=== PATIENT | male | born 1980 | race Caucasian/White ===

== ENCOUNTER 2017-07-17 16:22 | Emergency (ER) | payer OTHER ==
[2017-07-17 16:28] VITALS: BP 178/86; PULSE 82; RESP 18; TEMP 97
[2017-07-17] MEDS ORDERED: KETOROLAC 30 MG/ML 1 ML VIAL IVP STA (16:54)
--- NOTE | 2017-07-17 16:57 | ED ---
Abdominal Pain HPI - General Chief Complaint: Abdominal Pain Stated Complaint: abdominal pain Time Seen by Provider: 07/17/17 16:35 Source: patient, RN notes reviewed Mode of arrival: ambulatory Limitations: no limitations - History of Present Illness Initial Comments: This is a 36-year-old male with a benign past medical history who states he had the onset about one half weeks ago of intermittent left lower quadrant pain. He states this morning it started at 7 AM and this time did not go away. Minutes wax is awaiting between 7 and 06/24 to his current 4-5/10 in severity. No overt fevers hospice and sweats. No dysuria no hematuria no diarrhea no constipation. No trauma. No history of kidney stones. MD Complaint: abdominal pain - Related Data Home Medications Medication Instructions Recorded Confirmed Allopurinol [Zyloprim] 300 mg PO DAILY 07/17/17 07/17/17 Losartan/Hydrochlorothiazide 1 each PO DAILY 07/17/17 07/17/17 [Losartan-Hctz 100-12.5 mg Tab] Meloxicam [Mobic] 15 mg PO DAILY 07/17/17 07/17/17 Previous Rx's Medication Instructions Recorded Ibuprofen 800 mg PO Q6HR PRN #20 tablet 07/17/17 Tamsulosin [Flomax] 0.4 mg PO DAILY #7 cap 07/17/17 Allergies Allergy/AdvReac Type Severity Reaction Status Date / Time No Known Allergies Allergy Verified 07/17/17 16:28 Review of Systems ROS Statement: Those systems with pertinent positive or pertinent negative responses have been documented in the HPI. ROS Other: All systems not noted in ROS Statement are negative. Past Medical History Past Medical History: No Reported History History of Any Multi-Drug Resistant Organisms: None Reported Past Surgical History: Orthopedic Surgery Past Psychological History: No Psychological Hx Reported Smoking Status: Never smoker Past Alcohol Use History: Rare Past Drug Use History: None Reported General Exam - General Exam Comments Initial Comments: This is a well-developed well-nourished awake alert oriented 3 male Limitations: no limitations General appearance: alert, in no apparent distress Head exam: Present: atraumatic, normocephalic, normal inspection Eye exam: Present: normal appearance, PERRL, EOMI. Absent: scleral icterus, conjunctival injection, periorbital swelling ENT exam: Present: normal exam, mucous membranes moist Neck exam: Present: normal inspection. Absent: tenderness, meningismus, lymphadenopathy Respiratory exam: Present: normal lung sounds bilaterally. Absent: respiratory distress, wheezes, rales, rhonchi, stridor Cardiovascular Exam: Present: regular rate, normal rhythm, normal heart sounds. Absent: systolic murmur, diastolic murmur, rubs, gallop, clicks GI/Abdominal exam: Present: soft, tenderness (Obese abdomen with left lower quadrant tenderness palpation no guarding no rebound), normal bowel sounds. Absent: distended, guarding, rebound, rigid Rectal exam: Present: deferred exam: Present: normal inspection Extremities exam: Present: normal inspection, full ROM, normal capillary refill. Absent: tenderness, pedal edema, joint swelling, calf tenderness Back exam: Present: normal inspection. Absent: CVA tenderness (R), CVA tenderness (L) Neurological exam: Present: alert, oriented X3, CN II-XII intact Psychiatric exam: Present: normal affect, normal mood Skin exam: Present: warm, dry, intact, normal color. Absent: rash Course Vital Signs 07/17/17 16:26 Temperature 97.0 F L Pulse Rate 82 Respiratory 18 Rate Blood Pressure 178/86 O2 Sat by Pulse 97 Oximetry Medical Decision Making - Medical Decision Making Patient is feeling much improved at this time I did discuss the findings with him the presentation is consistent with a left ureterolithiasis. Patient will be discharged on appropriate medication is a follow-up with his doctor and return when necessary - Lab Data Result diagrams: 07/17/17 17:07 07/17/17 17:07 Lab Results 07/17/17 07/17/17 07/17/17 Range/Units 17:07 17:07 17:07 WBC 19.8 H (3.8-10.6) k/uL RBC 5.51 (4.30-5.90) m/uL Hgb 17.0 (13.0-17.5) gm/dL Hct 47.1 (39.0-53.0) % MCV 85.3 (80.0-100.0) fL MCH 30.9 (25.0-35.0) pg MCHC 36.2 (31.0-37.0) g/dL RDW 12.8 (11.5-15.5) % Plt Count 274 (150-450) k/uL Neutrophils % 86 % Lymphocytes % 8 % Monocytes % 4 % Eosinophils % 1 % Basophils % 0 % Neutrophils # 17.1 H (1.3-7.7) k/uL Lymphocytes # 1.6 (1.0-4.8) k/uL Monocytes # 0.8 (0-1.0) k/uL Eosinophils # 0.1 (0-0.7) k/uL Basophils # 0.1 (0-0.2) k/uL Sodium 137 (137-145) mmol/L Potassium 4.0 (3.5-5.1) mmol/L Chloride 100 (98-107) mmol/L Carbon Dioxide 21 L (22-30) mmol/L Anion Gap 16 mmol/L BUN 14 (9-20) mg/dL Creatinine 1.00 (0.66-1.25) mg/dL Est GFR (MDRD) Af Amer >60 (>60 ml/min/1.73 sqM) Est GFR (MDRD) Non-Af >60 (>60 ml/min/1.73 sqM) Glucose 147 H (74-99) mg/dL Calcium 10.1 (8.4-10.2) mg/dL Total Bilirubin 0.8 (0.2-1.3) mg/dL AST 50 (17-59) U/L ALT 96 H (21-72) U/L Alkaline Phosphatase 90 (38-126) U/L Total Protein 7.9 (6.3-8.2) g/dL Albumin 4.7 (3.5-5.0) g/dL Amylase 47 (30-110) U/L Lipase 127 (23-300) U/L Urine Color Yellow Urine Appearance Clear (Clear) Urine pH 5.5 (5.0-8.0) Ur Specific [place] 1.016 (1.001-1.035) Urine Protein Negative (Negative) Urine Glucose (UA) Negative (Negative) Urine Ketones Negative (Negative) Urine Blood Negative (Negative) Urine Nitrite Negative (Negative) Urine Bilirubin Negative (Negative) Urine Urobilinogen <2.0 (<2.0) mg/dL Ur Leukocyte Esterase Negative (Negative) - Radiology Data Radiology results: report reviewed (Did review the imaging and reports are is evidence of a 3 mm calcification at the left UVJ. No other significant findings at this time.), image reviewed Disposition Clinical Impression: Kidney stone on left side, Renal colic on left side Disposition: HOME SELF-CARE Condition: Good Instructions: Kidney Stones (ED), Renal Colic (ED), Flank Pain (ED), How to Strain Your Urine (ED) Prescriptions: Ibuprofen 800 mg PO Q6HR PRN #20 tablet PRN Reason: Pain Tamsulosin [Flomax] 0.4 mg PO DAILY #7 cap Referrals: Mary Kate Dia MD [Primary Care Provider] - 1-2 days
[2017-07-17 17:29] LABS: Basophils # (A) 0.1 k/uL (0-0.2); Basophils % (A) 0 %; CH 30.2; CHCM 35.5; Eosinophils # (A) 0.1 k/uL (0-0.7); Eosinophils % (A) 1 %; HCT 47.1 % (39.0-53.0); HDW 2.69; Luc # (Auto) 0.18; Luc % (Auto) 1; Lymphocytes # (A) 1.6 k/uL (1.0-4.8); Lymphocytes % (A) 8 %; MCH 30.9 pg (25.0-35.0); MCHC 36.2 g/dL (31.0-37.0); MCV 85.3 fL (80.0-100.0); Mean Platelet Volume 7.1; Monocytes # (A) 0.8 k/uL (0-1.0); Monocytes % (A) 4 %; Neutrophils # (A) 17.1 k/uL (1.3-7.7); Neutrophils % (A) 86 %; RBC 5.51 m/uL (4.30-5.90); RDW 12.8 % (11.5-15.5); WBC 19.8 k/uL (3.8-10.6); WBC (Perox) 19.28
[2017-07-17 17:32] LABS: Appearance,Urine Clear (Clear); Bilirubin,Urine Negative (Negative); Glucose,Urine (UA) Negative (Negative); Ketones,Urine Negative (Negative); Leukocyte Esterase,Urine Negative (Negative); Nitrite,Urine Negative (Negative); PH, Urine 5.5 (5.0-8.0); Protein,Urine Negative (Negative); Specific Gravity,Urine 1.016 (1.001-1.035); UA Billing (MACRO vs. MICRO) CHEM; Urobilinogen,Urine <2.0 mg/dL (<2.0)
[2017-07-17 17:44] LABS: ALT 96 U/L (21-72); AST 50 U/L (17-59); Alkaline Phosphatase 90 U/L (38-126); Amylase 47 U/L (30-110); Anion Gap 16 mmol/L; Blood Urea Nitrogen 14 mg/dL (9-20); Calcium 10.1 mg/dL (8.4-10.2); Carbon Dioxide 21 mmol/L (22-30); Chloride 100 mmol/L (98-107); Glucose 147 mg/dL (74-99); Non-African American GFR(MDRD) >60 (>60 ml/min/1.73 sqM); Sodium 137 mmol/L (137-145); Total Bilirubin 0.8 mg/dL (0.2-1.3); Total Protein 7.9 g/dL (6.3-8.2)
--- NOTE | 2017-07-17 18:07 | CT ---
EXAMINATION TYPE: CT abdomen pelvis wo con DATE OF EXAM: 07/17/2017 HISTORY: Patient complains of epigastric pain. CT DLP: 1811.3 mGycm. Automated Exposure Control for Dose Reduction was Utilized. TECHNIQUE: CT scan of the abdomen and pelvis is performed without oral or IV contrast. COMPARISON: NONE FINDINGS: Within the limitations of a non-contrast study, the following observations are made. LUNG BASES: No significant abnormality is appreciated. LIVER/GB: Liver is diffusely low dense consistent with marked fatty infiltration. Gallbladder is cont racted. PANCREAS: No significant abnormality is seen. SPLEEN: No significant abnormality is seen. ADRENALS: No significant abnormality is seen. KIDNEYS: There are 3-4 calculi scattered throughout the left kidney measuring 4 mm or smaller in size . There is additional obstructing 3 mm calculus at left UVJ on axial image 156. There is no significa nt left-sided pyelocaliectasis or proximal hydroureter. There is however mild left-sided perinephric fat stranding and left-sided renal enlargement. There are 3-4 small calculi measuring 3 mm or smaller in size scattered throughout the right kidney. No right-sided hydronephrosis is seen. BOWEL: Normal-appearing appendix from cecum is incidentally seen. GENITAL ORGANS: No gross abnormality seen. LYMPH NODES: No greater than 1cm abdominal or pelvic lymph nodes are appreciated. OSSEOUS STRUCTURES: No significant abnormality is seen. OTHER: No significant additional abnormality is seen. IMPRESSION: There is 3 mm calculus at left UVJ causing minimal left-sided hydronephrosis. There are s everal additional small nonobstructing renal calculi identified bilaterally.
[2017-07-17] MEDS ORDERED: TAMSULOSIN 0.4 MG CAP.ER.24H PO STA (18:30)
== END 2017-07-17 18:39 | disposition home or self-care (01) ==
LOC: EC 16:22
DX: N13.2 Hydronephrosis with renal and ureteral calculous obstruction (principal); N23 Unspecified renal colic; Z79.899 Other long term (current) drug therapy
CPT/HCPCS: 99284; 96374; 36415; 80053; 82150; 83690; 85025; 81003; 87040; 74176; J1885

== ENCOUNTER 2018-08-31 02:05 | Emergency (ER) | payer OTHER ==
[2018-08-31 02:11] VITALS: TEMP 97.7
--- NOTE | 2018-08-31 02:51 | ED ---
Back Pain HPI - General Chief Complaint: Back Pain/Injury Stated Complaint: Back Pain Time Seen by Provider: 08/31/18 02:14 Source: patient, RN notes reviewed Mode of arrival: ambulatory Limitations: no limitations - History of Present Illness Initial Comments: This is a 38-year-old male who presents to the emergency department with chief complaint of left-sided back pain. Patient states he has had back pain for the past 2 days. Patient describes the pain as a constant dull ache with intermittent increase in intensity. Patient states pain is made worse when lying on his back. He denies any falls, injuries or trauma. He denies any radiation of pain. States nothing alleviates the pain. Denies any fevers or chills, chest pain or shortness of breath, abdominal pain, nausea or vomiting, dysuria or hematuria. Patient reports history of kidney stones but states that this does not feel like previous episode as he had abdominal pain last time. - Related Data Home Medications Medication Instructions Recorded Confirmed Allopurinol [Zyloprim] 300 mg PO DAILY 07/17/17 08/31/18 Losartan/Hydrochlorothiazide 1 each PO DAILY 07/17/17 08/31/18 [Losartan-Hctz 100-12.5 mg Tab] Meloxicam [Mobic] 15 mg PO DAILY 07/17/17 08/31/18 Hydroxychloroquine Sulfate 400 mg PO ONCE 08/31/18 08/31/18 [Plaquenil] Leflunomide [Arava] 20 mg PO DAILY 08/31/18 08/31/18 predniSONE 10 mg PO BID 08/31/18 08/31/18 Previous Rx's Medication Instructions Recorded Ibuprofen 600 mg PO Q6HR #20 tablet 08/31/18 Allergies Allergy/AdvReac Type Severity Reaction Status Date / Time shellfish derived [Shellfish] Allergy Anaphylaxis Verified 09/21/17 03:08 Review of Systems ROS Statement: Those systems with pertinent positive or pertinent negative responses have been documented in the HPI. ROS Other: All systems not noted in ROS Statement are negative. Past Medical History Past Medical History: Hypertension History of Any Multi-Drug Resistant Organisms: None Reported Past Surgical History: Orthopedic Surgery Additional Past Surgical History / Comment(s): left knee (2006) & ankle (2016) surgery , hand sx 2017 Past Psychological History: No Psychological Hx Reported Smoking Status: Never smoker Past Alcohol Use History: Rare Past Drug Use History: None Reported General Exam - General Exam Comments Initial Comments: General: Awake and alert, well-developed; in no apparent distress. HEENT: Head atraumatic, normocephalic. Pupils are equal, round and reactive to light. Extraocular movements intact. Oropharynx moist without erythema or exudate. Neck: Supple. Normal ROM. Cardiovascular: Regular rate and rhythm. No murmurs, rubs or gallops. Chest symmetrical. Respiratory: Lungs clear to auscultation bilaterally. No wheezes, rales or rhonchi. Normal respiratory effort with no use of accessory muscles. Abdomen: Soft, non-tender, non-distended. No rigidity, rebound or guarding. Normal bowel sounds in all 4 quadrants. Musculoskeletal: Normal ROM, no tenderness bilateral upper and lower extremities. Ambulating normally. Skin: [place], warm and dry without rashes or lesions. Neurological: Alert and oriented x3. CN II-XII grossly intact. Speech is fluent and answers are appropriate. No focal neuro deficits. Psychiatric: Normal mood and affect. No overt signs of depression or anxiety noted. Limitations: no limitations Back exam: Present: normal inspection, full ROM, tenderness (tenderness on palpation of left posterolateral ribs at approximately level of T5-T7). Absent : paraspinal tenderness, vertebral tenderness Course Vital Signs 08/31/18 02:07 Temperature 97.7 F Pulse Rate 95 Respiratory 20 Rate Blood Pressure 126/85 O2 Sat by Pulse 97 Oximetry Medical Decision Making - Medical Decision Making This is a 38-year-old male who presents to the emergency department with chief complaint of back pain 2 days. Patient reports localized pain to the left side of his back. He has no other complaints and denies any other symptoms other than pain. States pain has been constant; it is not pleuritic in nature and nothing relieves the pain. It is made worse with lying down. Denies any falls, injuries or trauma. There is localized tenderness on palpation of the left posterolateral ribs at level of approximately T5 to T7. Patient does report a history of kidney stones but states that this feels different and the area of tenderness is higher than level of the kidneys. However, a UA was obtained. This revealed no acute abnormalities. No blood or signs of infection. An x-ray of the chest and left ribs was obtained. This revealed no acute abnormalities. Based on history and physical examination findings, I have high suspicion for musculoskeletal pain. Recommended rest, ice, Tylenol or Motrin as needed. Patient's vital signs are stable and he is in no acute distress. He will be discharged home at this time. He is in agreement and voices understanding. All questions answered. - Lab Data Lab Results 08/31/18 Range/Units 02:39 Urine Color Yellow Urine Appearance Clear (Clear) Urine pH 5.5 (5.0-8.0) Ur Specific [place] 1.015 (1.001-1.035) Urine Protein Negative (Negative) Urine Glucose (UA) Negative (Negative) Urine Ketones Negative (Negative) Urine Blood Negative (Negative) Urine Nitrite Negative (Negative) Urine Bilirubin Negative (Negative) Urine Urobilinogen <2.0 (<2.0) mg/dL Ur Leukocyte Esterase Negative (Negative) - Radiology Data Radiology results: report reviewed, image reviewed Chest x-ray impression: Normal chest. Normal left ribs. Disposition Clinical Impression: Rib pain Disposition: HOME SELF-CARE Condition: Good Instructions: Chest Wall Pain (ED) Additional Instructions: Please take medications as prescribed. Please follow up with primary care provider within 1-2 days. Return to emergency department if symptoms should worsen or any concerns arise. Prescriptions: Ibuprofen 600 mg PO Q6HR #20 tablet Is patient prescribed a controlled substance at d/c from ED?: No Referrals: Mary Kate Dia MD [Primary Care Provider] - 1-2 days Time of Disposition: 03:26
[2018-08-31 03:05] LABS: Appearance,Urine Clear (Clear); Bilirubin,Urine Negative (Negative); Blood,Urine Negative (Negative); Color,Urine Yellow; Glucose,Urine (UA) Negative (Negative); Ketones,Urine Negative (Negative); Leukocyte Esterase,Urine Negative (Negative); Nitrite,Urine Negative (Negative); PH, Urine 5.5 (5.0-8.0); Protein,Urine Negative (Negative); Specific Gravity,Urine 1.015 (1.001-1.035); Urobilinogen,Urine <2.0 mg/dL (<2.0)
--- NOTE | 2018-08-31 03:17 | XR ---
EXAMINATION TYPE: XR ribs LT w pa chest xray DATE OF EXAM: 08/31/2018 COMPARISON: NONE HISTORY: Left side pain for 3 days TECHNIQUE: 5 views FINDINGS: Heart and mediastinum are normal. Lungs are clear. There is no sign of pleural effusion or pneumothorax. Left ribs appear intact. IMPRESSION: Normal chest. Normal left ribs.
[2018-08-31 03:31] VITALS: BP 120/69; PULSE 70; RESP 18
== END 2018-08-31 03:31 | disposition home or self-care (01) ==
LOC: EC 02:05
DX: R07.81 Pleurodynia (principal); I10 Essential (primary) hypertension; Z79.899 Other long term (current) drug therapy; Z79.1 Long term (current) use of non-steroidal anti-inflammatories (NSAID); Z79.52 Long term (current) use of systemic steroids; Z91.013 Allergy to seafood; Z87.442 Personal history of urinary calculi
CPT/HCPCS: 81003; 99283

== ENCOUNTER 2019-01-26 10:53 | Emergency (ER) | payer OTHER ==
[2019-01-26 11:11] VITALS: RESP 16
[2019-01-26] MEDS ORDERED: SODIUM CHLORIDE 0.9% 1,000 ML IV STA (11:45)
[2019-01-26 11:59] LABS: Basophils # (A) 0.1 k/uL (0-0.2); Basophils % (A) 1 %; Eosinophils # (A) 0.7 k/uL (0-0.7); Eosinophils % (A) 6 %; HCT 50.6 % (39.0-53.0); HGB 16.4 gm/dL (13.0-17.5); Lymphocytes # (A) 2.7 k/uL (1.0-4.8); Lymphocytes % (A) 24 %; MCH 28.5 pg (25.0-35.0); MCHC 32.4 g/dL (31.0-37.0); MCV 88.1 fL (80.0-100.0); Mean Platelet Volume 7.3; Monocytes # (A) 0.8 k/uL (0-1.0); Monocytes % (A) 7 %; Neutrophils % (A) 61 %; Platelet Count 268 k/uL (150-450); RBC 5.74 m/uL (4.30-5.90); RDW 13.2 % (11.5-15.5); WBC 11.4 k/uL (3.8-10.6)
[2019-01-26] MEDS ORDERED: ONDANSETRON 4 MG/2 ML VIAL IVP STA (12:03)
[2019-01-26] MEDS ORDERED: MORPHINE SULFATE 4 MG/ML SYRINGE IVP STA (12:03)
[2019-01-26] MEDS ORDERED: KETOROLAC 30 MG/ML 1 ML VIAL IVP STA (12:03)
[2019-01-26 12:07] LABS: Appearance,Urine Cloudy (Clear); Bacteria,Urine Occasional /hpf; Bilirubin,Urine Negative (Negative); Blood,Urine Large (Negative); Calcium Oxalate Crystals,Urine Few /hpf; Color,Urine Red; Glucose,Urine (UA) Trace (Negative); Ketones,Urine Trace (Negative); Leukocyte Esterase,Urine Negative (Negative); Mucus,Urine Many /hpf; Nitrite,Urine Negative (Negative); Protein,Urine 3+ (Negative); RBC,Urine 92 /hpf (0-5); Specific Gravity,Urine 1.038 (1.001-1.035); Squamous Epithelial Cell,Urine 3 /hpf (0-4); WBC,Urine 2 /hpf (0-5)
--- NOTE | 2019-01-26 12:28 | ED ---
General Adult HPI - General Chief complaint: Abdominal Pain Stated complaint: back pain Time Seen by Provider: 01/26/19 11:15 Source: patient, RN notes reviewed Mode of arrival: ambulatory Limitations: no limitations - History of Present Illness Initial comments: 38-year-old male presents to the emergency department for a chief complaint of left flank pain. Patient states he woke up this morning with this pain. Patient states it feels like a kidney stone which he has had 2 years ago. Patient states he is having urinary frequency. He states the pain is also radiating into his left side abdomen. Patient denies any other abdominal pain. Patient denies any testicular pain. Patient denies nausea or vomiting. Patient has no other complaints at this time including shortness of breath, chest pain, nausea or vomiting, headache, or visual changes. - Related Data Home Medications Medication Instructions Recorded Confirmed Allopurinol [Zyloprim] 600 mg PO DAILY 07/17/17 01/26/19 Losartan/Hydrochlorothiazide 1 tab PO DAILY 07/17/17 01/26/19 [Losartan-Hctz 100-12.5 mg Tab] Meloxicam [Mobic] 15 mg PO DAILY 07/17/17 01/26/19 Leflunomide [Arava] 20 mg PO DAILY 08/31/18 01/26/19 Adalimumab [Humira Pen] 40 mg SQ [id number] 01/26/19 01/26/19 Previous Rx's Medication Instructions Recorded HYDROcodone/APAP 5-325MG [[place] 1 tab PO Q6HR PRN #12 tab 01/26/19 5-325] Ibuprofen [Motrin] 600 mg PO Q8HR PRN #20 tab 01/26/19 Ondansetron [Zofran ODT] 4 mg PO Q8HR PRN #15 tab 01/26/19 Tamsulosin [Flomax] 0.4 mg PO DAILY #10 cap 01/26/19 Allergies Allergy/AdvReac Type Severity Reaction Status Date / Time shellfish derived [Shellfish] Allergy Anaphylaxis Verified 01/26/19 11:46 Review of Systems ROS Statement: Those systems with pertinent positive or pertinent negative responses have been documented in the HPI. ROS Other: All systems not noted in ROS Statement are negative. Past Medical History Past Medical History: Hypertension Additional Past Medical History / Comment(s): Kidney stones History of Any Multi-Drug Resistant Organisms: None Reported Past Surgical History: Orthopedic Surgery Additional Past Surgical History / Comment(s): left knee (2006) & ankle (2016) surgery , hand sx 2017 Past Psychological History: No Psychological Hx Reported Smoking Status: Never smoker Past Alcohol Use History: Rare Past Drug Use History: None Reported General Exam Limitations: no limitations General appearance: alert, in no apparent distress Head exam: Present: atraumatic, normocephalic, normal inspection Eye exam: Present: normal appearance, PERRL, EOMI. Absent: scleral icterus, conjunctival injection, periorbital swelling ENT exam: Present: normal exam, mucous membranes moist Neck exam: Present: normal inspection, full ROM. Absent: tenderness, meningismus, lymphadenopathy Respiratory exam: Present: normal lung sounds bilaterally. Absent: respiratory distress, wheezes, rales, rhonchi, stridor Cardiovascular Exam: Present: regular rate, normal rhythm, normal heart sounds. Absent: systolic murmur, diastolic murmur, rubs, gallop, clicks GI/Abdominal exam: Present: soft, normal bowel sounds. Absent: distended, tenderness, guarding, rebound, rigid Back exam: Absent: CVA tenderness (R), CVA tenderness (L) Neurological exam: Present: alert, oriented X3, CN II-XII intact Psychiatric exam: Present: normal affect, normal mood Course Vital Signs 01/26/19 01/26/19 11:09 13:46 Temperature 98.6 F 98.0 F Pulse Rate 91 84 Respiratory 16 16 Rate Blood Pressure 209/124 134/87 O2 Sat by Pulse 98 98 Oximetry Medical Decision Making - Medical Decision Making 38-year-old male with a past medical history of kidney stones, hypertension presents to the emergency department for a chief complaint of left flank pain 4 hours. Patient states he woke up with this pain. He states it radiates into the left lower quadrant and feels similar to past kidney stones. CBC has a w jessie count of 11, likely reactive. CMP unremarkable patient does have a glucose of 197, will follow up for repeat glucose with primary care. Urine does not show evidence of infection. Calcium oxalate crystals are present. 92 red blood cells present. Patient does have a 4-5 mm left ureteral calculus distal aspect with perinephric stranding and left-sided hydronephrosis. Patient initially hypertensive, likely due to the pain as pain was treated and blood pressure normalized to 134/87. Patient feeling much better at this time, currently rating his pain at a 4, will be given additional dose of pain medication. Patient will be given [place], Zofran, Flomax, and Motrin at home. He will follow up with urologist, referral given. He will return here if he has any worsening symptoms. - Lab Data Result diagrams: 01/26/19 11:28 01/26/19 11:28 Lab Results 01/26/19 01/26/19 01/26/19 Range/Units 11:28 11:28 11:28 WBC 11.4 H (3.8-10.6) k/uL RBC 5.74 (4.30-5.90) m/uL Hgb 16.4 (13.0-17.5) gm/dL Hct 50.6 (39.0-53.0) % MCV 88.1 (80.0-100.0) fL MCH 28.5 (25.0-35.0) pg MCHC 32.4 (31.0-37.0) g/dL RDW 13.2 (11.5-15.5) % Plt Count 268 (150-450) k/uL Neutrophils % 61 % Lymphocytes % 24 % Monocytes % 7 % Eosinophils % 6 % Basophils % 1 % Neutrophils # 7.0 (1.3-7.7) k/uL Lymphocytes # 2.7 (1.0-4.8) k/uL Monocytes # 0.8 (0-1.0) k/uL Eosinophils # 0.7 (0-0.7) k/uL Basophils # 0.1 (0-0.2) k/uL Sodium 140 (137-145) mmol/L Potassium 4.1 (3.5-5.1) mmol/L Chloride 104 (98-107) mmol/L Carbon Dioxide 25 (22-30) mmol/L Anion Gap 11 mmol/L BUN 21 H (9-20) mg/dL Creatinine 0.68 (0.66-1.25) mg/dL Est GFR (CKD-EPI)AfAm >90 (>60 ml/min/1.73 sqM) Est GFR (CKD-EPI)NonAf >90 (>60 ml/min/1.73 sqM) Glucose 197 H (74-99) mg/dL Calcium 9.5 (8.4-10.2) mg/dL Total Bilirubin 0.9 (0.2-1.3) mg/dL AST 35 (17-59) U/L ALT 61 (21-72) U/L Alkaline Phosphatase 75 (38-126) U/L Total Protein 7.3 (6.3-8.2) g/dL Albumin 4.1 (3.5-5.0) g/dL Amylase 71 (30-110) U/L Lipase 100 (23-300) U/L Urine Color Red Urine Appearance Cloudy (Clear) Urine pH 6.0 (5.0-8.0) Ur Specific [place] 1.038 H (1.001-1.035) Urine Protein 3+ H (Negative) Urine Glucose (UA) Trace H (Negative) Urine Ketones Trace H (Negative) Urine Blood Large H (Negative) Urine Nitrite Negative (Negative) Urine Bilirubin Negative (Negative) Urine Urobilinogen 2.0 (<2.0) mg/dL Ur Leukocyte Esterase Negative (Negative) Urine RBC 92 H (0-5) /hpf Urine WBC 2 (0-5) /hpf Ur Squamous Epith Cells 3 (0-4) /hpf Calcium Oxalate Crystal Few H (None) /hpf Urine Bacteria Occasional H (None) /hpf Urine Mucus Many H (None) /hpf Disposition Clinical Impression: Renal stone, Hyperglycemia Disposition: HOME SELF-CARE Condition: Good Instructions (If sedation given, give patient instructions): Flank Pain (ED), Kidney Stones (ED) Additional Instructions: Please take prescriptions as directed. Please follow-up with primary care in 1- 2 days as well as urology. Return here to the emergency department if you have any worsening symptoms. Prescriptions: Tamsulosin [Flomax] 0.4 mg PO DAILY #10 cap Ibuprofen [Motrin] 600 mg PO Q8HR PRN #20 tab PRN Reason: Pain HYDROcodone/APAP 5-325MG [[place] 5-325] 1 tab PO Q6HR PRN #12 tab PRN Reason: Pain Ondansetron [Zofran ODT] 4 mg PO Q8HR PRN #15 tab PRN Reason: Nausea Is patient prescribed a controlled substance at d/c from ED?: Yes When asked, does pt state using other controlled substances?: No If prescribed controlled substance>3 days was MAPS reviewed?: Prescribed <3 Days If opioid is for acute pain is fill amount 7 days or less?: Yes If Rx opioid, was Start Talking consent form obtained?: Yes Referrals: Mary Kate Dia MD [Primary Care Provider] - 1-2 days Time of Disposition: 14:08
[2019-01-26 12:30] LABS: Albumin 4.1 g/dL (3.5-5.0); Amylase 71 U/L (30-110); Anion Gap 11 mmol/L; Blood Urea Nitrogen 21 mg/dL (9-20); Calcium 9.5 mg/dL (8.4-10.2); Carbon Dioxide 25 mmol/L (22-30); Chloride 104 mmol/L (98-107); Glucose 197 mg/dL (74-99); Lipase 100 U/L (23-300); Sodium 140 mmol/L (137-145); Total Bilirubin 0.9 mg/dL (0.2-1.3); Total Protein 7.3 g/dL (6.3-8.2)
[2019-01-26 12:31] LABS: AST 35 U/L (17-59)
[2019-01-26 12:32] LABS: ALT 61 U/L (21-72); Alkaline Phosphatase 75 U/L (38-126)
[2019-01-26 12:35] LABS: Potassium 4.1 mmol/L (3.5-5.1)
--- NOTE | 2019-01-26 13:14 | CT ---
EXAMINATION TYPE: CT abdomen pelvis wo con DATE OF EXAM: 01/26/2019 COMPARISON: Prior CT 07/17/2017 HISTORY: Back pain CT DLP: 2454 mGycm Automated exposure control for dose reduction was used. TECHNIQUE: Helical acquisition of images from the lung bases through the pelvis. FINDINGS: Lack of contrast could compromise sensitivity. LUNG BASES: No significant abnormality is appreciated. AORTA: No significant abnormality is appreciataed. LIVER/GB: The liver shows low attenuation likely due to hepatic steatosis. The liver is enlarged. Gal lbladder is unremarkable. PANCREAS: No significant abnormality is seen. SPLEEN: No significant abnormality is seen. ADRENALS: No significant abnormality is seen. KIDNEYS: There is perinephric stranding on the left. Mild left-sided hydronephrosis. There multiple c alcifications present within the left kidney, approximately 4.5 punctate calcifications, the largest measures only approximately 5 to 6 mm. The left ureter is mildly dilated. There is a distal left uret eral calculus present measuring approximately 4 to 5 mm in size. REPRODUCTIVE ORGANS: No significant abnormality is seen. URINARY BLADDER: No significant abnormality is seen. BOWEL: No significant abnormality is seen. The appendix is normal. No bowel obstruction. FREE AIR: No Free Air is visible. ASCITES: None visible. PELVIC ADENOPATHY: None visualized. RETROPERITONEAL ADENOPATHY: No Retroperitoneal Adenopathy visible. OSSEOUS STRUCTURES: No significant abnormality is seen. IMPRESSION: DISTAL LEFT URETERAL CALCULUS, LEFT-SIDED HYDRONEPHROSIS AND NEPHROLITHIASIS. HEPATOMEGALY, CORRELATE FOR HEPATIC STEATOSIS.
[2019-01-26] MEDS ORDERED: HYDROmorphone 0.5 MG/0.5 ML SYRINGE IVP STA (13:46)
[2019-01-26 13:47] VITALS: PULSE 84
[2019-01-26 14:29] VITALS: BP 148/74; TEMP 97.8
--- NOTE | 2019-01-26 14:31 | XR ---
Abdomen HISTORY: Abdomen pain Frontal view of the abdomen on 3 images, correlation to CT abdomen pelvis same date Lung bases are clear. There is no evident bowel obstruction or pneumoperitoneum. No pathologic calcif ication is evident likely due to patient body habitus, technique of the exam. IMPRESSION: No acute abnormality. Patient's kidney and ureteral calculi are not seen with certainty.
== END 2019-01-26 14:27 | disposition home or self-care (01) ==
LOC: EC 10:53
DX: N13.2 Hydronephrosis with renal and ureteral calculous obstruction (principal); R73.9 Hyperglycemia, unspecified; I10 Essential (primary) hypertension; Z91.013 Allergy to seafood; Z79.1 Long term (current) use of non-steroidal anti-inflammatories (NSAID); Z79.899 Other long term (current) drug therapy
CPT/HCPCS: 36415; 80053; 82150; 83690; 85025; 81001; 74018; 74176; 99284; 96374; 96375 ×3; 96361 ×2; J2270; J2405; J1885; J1170

== ENCOUNTER → 2019-10-31 | Outpatient (CLI) | payer OTHER ==
--- NOTE | 2019-10-31 12:30 | US ---
EXAMINATION TYPE: US liver DATE OF EXAM: 10/31/2019 COMPARISON: NONE CLINICAL HISTORY: R94.5 ABNORMAL LIVER FUNCTIONS. EXAM MEASUREMENTS: Liver Length: 20.4 cm Gallbladder Wall: 0.2 cm CBD: 0.6 cm Right Kidney: 14.5 x 5.5 x 6.2 cm Morbid obesity, technically difficult and limited. Pancreas: wnl Liver: Severe attenuation, decreased visualization of vessels suggestive of fatty infiltrate, enlarg ed, limited views. Findings overall limit evaluation for hepatic mass. Gallbladder: limited visualization, appears wnl Evidence for sonographic Bales's sign: No CBD: wnl Right Kidney: measures large IMPRESSION: 1. Sonographic findings most commonly related to hepatic steatosis. This appears severe. Correlate wi th liver function test results. 2. Hepatomegaly. The right kidney also appears enlarged in size.
== END | disposition home or self-care (01) ==
LOC: RADUSWWP 08:56
PROVIDERS: ATTEND Internal Medicine
DX: R16.0 Hepatomegaly, not elsewhere classified (principal)
CPT/HCPCS: 76705

== ENCOUNTER → 2020-06-05 | Outpatient (CLI) | payer OTHER ==
[2020-06-05 21:30] LABS: Hemoglobin A1C 11.7 % (4.0-6.0)
== END | disposition home or self-care (01) ==
LOC: LABWHC1 10:31
PROVIDERS: ATTEND Internal Medicine
DX: R73.9 Hyperglycemia, unspecified (principal)
CPT/HCPCS: 36415; 83036

== ENCOUNTER → 2022-03-30 | Outpatient (CLI) | payer OTHER ==
[2022-03-30 14:31] LABS: Basophils # (A) 0.08 X 10*3/uL (0.00-0.10); Basophils % (A) 0.6 %; Eosinophils # (A) 0.19 X 10*3/uL (0.04-0.35); Eosinophils % (A) 1.4 %; HCT 51.4 % (39.6-50.0); HGB 16.8 g/dL (13.0-17.0); Immature Grans, Automated 0.7 %; Lymphocytes # (A) 3.43 X 10*3/uL (0.90-5.00); Lymphocytes % (A) 25.3 %; MCH 29.4 pg (27.0-32.0); MCHC 32.7 g/dL (32.0-37.0); Mean Platelet Volume 10.7 fL (9.5-12.2); Monocytes # (A) 0.87 X 10*3/uL (0.20-1.00); Monocytes % (A) 6.4 %; NRBC Per 100 WBC 0 /100 WBCS (0.0-0.0); Neutrophils # (A) 8.88 X 10*3/uL (1.80-7.70); Neutrophils % (A) 65.6 %; Platelet Count 292 X 10*3/uL (140-440); RBC 5.71 X 10*6/uL (4.40-5.60); RDW 12.8 % (11.5-14.5); WBC 13.55 X 10*3/uL (4.50-10.00)
[2022-03-30 14:51] LABS: ALT 54 U/L (10-49); AST 24 U/L (14-35); Albumin 4.5 g/dL (3.8-4.9); Albumin/Globulin Ratio 1.67 (1.60-3.17); Alkaline Phosphatase 79 U/L (41-126); Bilirubin, Conjugated <0.20 mg/dL (0.20-0.40); Globulin 2.7 g/dL (1.6-3.3); Total Protein 7.2 g/dL (6.2-8.2)
== END | disposition home or self-care (01) ==
LOC: LABWHC1 10:31
PROVIDERS: ATTEND Internal Medicine Rheumatology
DX: Z51.81 Encounter for therapeutic drug level monitoring (principal); M06.09 Rheumatoid arthritis without rheumatoid factor, multiple sites
CPT/HCPCS: 36415; 80076; 85025

== ENCOUNTER → 2022-07-21 | Outpatient (CLI) | payer OTHER ==
[2022-07-21 14:39] LABS: Basophils # (A) 0.06 X 10*3/uL (0.00-0.10); Basophils % (A) 0.5 %; Eosinophils # (A) 0.19 X 10*3/uL (0.04-0.35); Eosinophils % (A) 1.7 %; HGB 15.9 g/dL (13.0-17.0); Immature Grans, Automated 0.4 %; Lymphocytes # (A) 3.84 X 10*3/uL (0.90-5.00); Lymphocytes % (A) 33.7 %; MCH 30.5 pg (27.0-32.0); MCHC 33.8 g/dL (32.0-37.0); Mean Platelet Volume 10.6 fL (9.5-12.2); Monocytes # (A) 0.57 X 10*3/uL (0.20-1.00); NRBC Per 100 WBC 0 /100 WBCS (0.0-0.0); Neutrophils % (A) 58.7 %; Platelet Count 264 X 10*3/uL (140-440); RBC 5.22 X 10*6/uL (4.40-5.60); RDW 12.3 % (11.5-14.5); WBC 11.41 X 10*3/uL (4.50-10.00)
[2022-07-21 15:30] LABS: Bilirubin,Unconjugated 0.43 mg/dL (0.20-1.00); Chol/HDL Ratio 3.22 Ratio; Globulin 2.6 g/dL (1.6-3.3); LDL Cholesterol,Calculated 95.8 mg/dL (0.0-131.0)
[2022-07-21 15:31] LABS: ALT 95 U/L (10-49); AST 46 U/L (14-35); Albumin 4.6 g/dL (3.8-4.9); Albumin/Globulin Ratio 1.73 (1.60-3.17); Alkaline Phosphatase 80 U/L (41-126); Bilirubin, Conjugated 0.21 mg/dL (0.20-0.40); Total Protein 7.2 g/dL (6.2-8.2)
== END | disposition home or self-care (01) ==
LOC: LABWHC1 09:53
PROVIDERS: ATTEND Internal Medicine Rheumatology
DX: Z51.81 Encounter for therapeutic drug level monitoring (principal); M06.09 Rheumatoid arthritis without rheumatoid factor, multiple sites
CPT/HCPCS: 36415; 80061; 80076; 85025

== ENCOUNTER → 2022-10-22 | Outpatient (CLI) | payer OTHER ==
[2022-10-22 17:59] LABS: Basophils # (A) 0.08 X 10*3/uL (0.00-0.10); Basophils % (A) 0.6 %; Eosinophils # (A) 0.14 X 10*3/uL (0.04-0.35); HCT 53.1 % (39.6-50.0); HGB 17.6 g/dL (13.0-17.0); Immature Grans, Automated 0.4 %; Lymphocytes # (A) 2.64 X 10*3/uL (0.90-5.00); Lymphocytes % (A) 19.5 %; MCH 29.7 pg (27.0-32.0); MCHC 33.1 g/dL (32.0-37.0); MCV 89.5 fL (80.0-97.0); Mean Platelet Volume 10.5 fL (9.5-12.2); Monocytes # (A) 0.79 X 10*3/uL (0.20-1.00); Monocytes % (A) 5.8 %; NRBC Per 100 WBC 0 /100 WBCS (0.0-0.0); Neutrophils # (A) 9.85 X 10*3/uL (1.80-7.70); Neutrophils % (A) 72.7 %; Platelet Count 287 X 10*3/uL (140-440); RBC 5.93 X 10*6/uL (4.40-5.60); RDW 12.2 % (11.5-14.5); WBC 13.55 X 10*3/uL (4.50-10.00)
[2022-10-22 18:12] LABS: ALT 61 U/L (10-49); AST 34 U/L (14-35); Albumin 4.6 g/dL (3.8-4.9); Albumin/Globulin Ratio 1.46 (1.60-3.17); Alkaline Phosphatase 81 U/L (41-126); Bilirubin, Conjugated <0.20 mg/dL (0.20-0.40); Globulin 3.2 g/dL (1.6-3.3); LDL Cholesterol,Calculated 92.5 mg/dL (0.0-131.0); Total Protein 7.8 g/dL (6.2-8.2)
== END | disposition home or self-care (01) ==
LOC: LABWHC1 12:23
PROVIDERS: ATTEND Internal Medicine Rheumatology
DX: Z51.81 Encounter for therapeutic drug level monitoring (principal); M06.09 Rheumatoid arthritis without rheumatoid factor, multiple sites
CPT/HCPCS: 36415; 80061; 80076; 85025

== ENCOUNTER → 2023-06-25 | Outpatient (CLI) | payer OTHER | END | disposition home or self-care (01) | LOC: LABWHC1 08:48 | PROVIDERS: ATTEND Internal Medicine Rheumatology | DX: Z53.9 Procedure and treatment not carried out, unspecified reason (principal) ==

== ENCOUNTER → 2024-03-14 | Outpatient (CLI) | payer OTHER ==
[2024-03-14 21:46] LABS: Basophils # (A) 0.08 X 10*3/uL (0.00-0.10); Basophils % (A) 0.7 %; Eosinophils # (A) 0.16 X 10*3/uL (0.04-0.35); Eosinophils % (A) 1.3 %; HCT 51.2 % (39.6-50.0); HGB 17.3 g/dL (13.0-17.0); Lymphocytes # (A) 3.15 X 10*3/uL (0.90-5.00); MCH 30.3 pg (27.0-32.0); MCHC 33.8 g/dL (32.0-37.0); MCV 89.7 FL (80.0-97.0); Mean Platelet Volume 10.9 FL (9.5-12.2); Monocytes % (A) 7.4 %; NRBC Per 100 WBC 0 X 10*3/uL (0.00-0.01); Neutrophils # (A) 7.78 X 10*3/uL (1.80-7.70); Neutrophils % (A) 64.2 %; Platelet Count 271 X 10*3/uL (140-440); RBC 5.71 X 10*6/uL (4.40-5.60); RDW 12.5 % (11.5-14.5); WBC 12.12 X 10*3/uL (4.50-10.00)
[2024-03-14 23:19] LABS: ALT 57 U/L (10-49); AST 36 U/L (14-35); Albumin 4.6 g/dL (3.8-4.9); Albumin/Globulin Ratio 1.84 Ratio (1.60-3.17); Alkaline Phosphatase 70 U/L (41-126); Bilirubin, Conjugated <0.20 mg/dL (0.20-0.40); Bilirubin,Unconjugated >0.30 mg/dL (0.20-1.00); Globulin 2.5 g/dL (1.6-3.3); Total Bilirubin 0.5 mg/dL (0.3-1.2); Total Protein 7.1 g/dL (6.2-8.2)
== END | disposition home or self-care (01) ==
LOC: LABWHC1 12:51
PROVIDERS: ATTEND Internal Medicine Rheumatology
DX: M06.09 Rheumatoid arthritis without rheumatoid factor, multiple sites (principal)
CPT/HCPCS: 36415; 80076; 85025

== ENCOUNTER 2024-06-14 20:26 | Emergency (ER) | payer OTHER ==
[2024-06-14 20:33] VITALS: PULSE 93; RESP 18
--- NOTE | 2024-06-14 21:59 | XR ---
EXAMINATION TYPE: XR ankle complete RT DATE OF EXAM: 06/14/2024 8:52 PM CLINICAL INDICATION:Male, 44 years old with history of pain; [facility] COMPARISON: None TECHNIQUE: XR ankle complete RT; ankle is imaged in frontal, lateral and oblique projections. FINDINGS: No acute fractures are appreciated. Ankle mortise is intact Kager's fat pad is intact. Calcaneal enth esophyte noted. No significant soft tissue swelling. IMPRESSION: No evidence of acute fracture.
--- NOTE | 2024-06-14 23:00 | ED ---
Lower Extremity Injury HPI - General Chief Complaint: Extremity Injury, Lower Stated Complaint: R ankle pain Time Seen by Provider: 06/14/24 20:35 Source: patient Mode of arrival: ambulatory Limitations: no limitations - History of Present Illness Initial Comments: 44-year-old man presents emergency department reporting right ankle pain. He states that his right ankle has been hurting for the past couple of days. He denies any trauma. Pain is located at the calcaneus and is worse with dorsiflexion and plantarflexion of the ankle. He states that if he keeps his foot in a neutral position when ambulating that his pain is minimal. Has any fevers. No redness to the area. Denies any calf pain or swelling. No history of DVT or PE. No other alleviating, precipitating or modifying factors - Related Data Home Medications Medication Instructions Recorded Confirmed Losartan/Hydrochlorothiazide 1 tab PO DAILY 07/17/17 01/26/19 [Losartan-Hctz 100-12.5 mg Tab] Meloxicam [Mobic] 15 mg PO DAILY 07/17/17 01/26/19 allopurinoL [Zyloprim] 600 mg PO DAILY 07/17/17 01/26/19 Leflunomide [Arava] 20 mg PO DAILY 08/31/18 01/26/19 Adalimumab [Humira Pen] 40 mg SQ [id number] 01/26/19 01/26/19 Previous Rx's Medication Instructions Recorded HYDROcodone/APAP 5-325MG [Leggett 1 tab PO Q6HR PRN #12 tab 01/26/19 5-325] Ibuprofen [Motrin] 600 mg PO Q8HR PRN #20 tab 01/26/19 Ondansetron [Zofran ODT] 4 mg PO Q8HR PRN #15 tab 01/26/19 Tamsulosin [Flomax] 0.4 mg PO DAILY #10 cap 01/26/19 Acetaminophen-Codeine 300-30mg 1 tab PO Q4H PRN 3 Days #18 tablet 06/14/24 [Tylenol w/codeine #3] Allergies Allergy/AdvReac Type Severity Reaction Status Date / Time shellfish derived [Shellfish] Allergy Anaphylaxis Verified 06/14/24 20:33 Review of Systems ROS Statement: Those systems with pertinent positive or pertinent negative responses have been documented in the HPI. ROS Other: All systems not noted in ROS Statement are negative. Past Medical History Past Medical History: Hypertension Additional Past Medical History / Comment(s): Kidney stones History of Any Multi-Drug Resistant Organisms: None Reported Past Surgical History: Orthopedic Surgery Additional Past Surgical History / Comment(s): left knee (2006) & ankle (2016) surgery , hand sx 2017 Past Psychological History: No Psychological Hx Reported Smoking Status: Never smoker Past Alcohol Use History: Rare Past Drug Use History: None Reported General Exam Limitations: no limitations General appearance: alert, in no apparent distress Extremities exam: Present: full ROM, tenderness (To palpation over the calcaneus at the insertion site of the Achilles. No redness or warmth. 2+ DP and PT pulses. Negative Homans' sign) Neurological exam: Present: alert, oriented X3, CN II-XII intact Psychiatric exam: Present: normal affect, normal mood Course Vital Signs 06/14/24 06/14/24 20:31 23:21 Temperature 98 F 98.1 F Pulse Rate 93 93 Respiratory 18 18 Rate Blood Pressure 157/84 145/90 O2 Sat by Pulse 97 95 Oximetry Medical Decision Making - Medical Decision Making Was pt. sent in by a medical professional or institution (, PA, CHAIR AND COUCH MAKER, urgent care, hospital, or longterm...) When possible be specific @ -No Did you speak to anyone other than the patient for history (EMS, parent, family, police, friend...)? What history was obtained from this source @ -No Did you review nursing and triage notes (agree or disagree)? Why? @ -I reviewed and agree with nursing and triage notes Were old charts reviewed (outside hosp., previous admission, EMS record, old EKG, old radiological studies, urgent care reports/EKG's, longterm records)? Report findings @ -No old charts were reviewed Differential Diagnosis (chest pain, altered mental status, abdominal pain women, abdominal pain men, vaginal bleeding, weakness, fever, dyspnea, syncope, headache, dizziness, GI bleed, back pain, seizure, CVA, palpatations, mental health, musculoskeletal)? @ -Differential Musculoskeletal Muscular strain, contusion, ligament sprain, fracture, arthritis, septic arthritis, bursitis, cellulitis, muscle spasm, nerve compression, DVT, arterial occlusion, herpes zoster, electrolyte abnormality, tumor.... This is not meant to be in all inclusive list EKG interpreted by me (3pts min.). @ -Not done X-rays interpreted by me (1pt min.). @ -Yes and demonstrates entheoseophyte growth CT interpreted by me (1pt min.). @ -None done U/S interpreted by me (1pt. min.). @ -None done What testing was considered but not performed or refused? (CT, X-rays, U/S, labs)? Why? @ -None What meds were considered but not given or refused? Why? @ -None Did you discuss the management of the patient with other professionals (professionals i.e. , PA, CHAIR AND COUCH MAKER, lab, RT, psych nurse, social security assessor, software applications engineer, teacher, customs officer, social work case manager)? Give summary @ -No Was smoking cessation discussed for >3mins.? @ -No Was critical care preformed (if so, how long)? @ -No Were there social determinants of health that impacted care today? How? (Homelessness, low income, unemployed, alcoholism, drug addiction, transport ation, low edu. Level, literacy, decrease access to med. care, senior living, rehab)? @ -No Was there de-escalation of care discussed even if they declined (Discuss DNR or withdrawal of care, Hospice)? DNR status @ -No What co-morbidities impacted this encounter? (DM, HTN, Smoking, COPD, CAD, Cancer, CVA, ARF, Chemo, Hep., AIDS, mental health diagnosis, sleep apnea, morbid obesity)? @ -Rheumatoid arthritis Was patient admitted / discharged? Hospital course, mention meds given and route, prescriptions, significant lab abnormalities, going to OR and other pertinent info. @ -Upon arrival patient seen and evaluated in room 15. Thorough history and physical exam was performed. Patient does go for x-ray. It does demonstrate arthritic changes to the ankle. Patient has majority of his tenderness at the insertion of the Achilles. Symptoms are concerning for Achilles tendinitis. At this time the area is wrapped with an Baron wrap. Patient is already on meloxicam and therefore additional NSAIDs are not recommended. Patient has been taking regular Tylenol without improvement. I did offer increasing him to Tylenol 3's. He must substitute his regular Tylenol dose with the Tylenol threes. He needs to eat before taking the medications. Recommend that he follow-up with the orthopedic office for further management of his pain and return for any new or worsening symptoms. Patient was agreeable to this plan and was discharged in stable condition Undiagnosed new problem with uncertain prognosis? @ -No Drug Therapy requiring intensive monitoring for toxicity (Heparin, Nitro, Insulin, Cardizem)? @ -No Were any procedures done? @ -No Diagnosis/symptom? @ -Acute right ankle pain, suspected Achilles tendinitis Acute, or Chronic, or Acute on Chronic? @ -Acute Uncomplicated (without systemic symptoms) or Complicated (systemic symptoms)? @ -Uncomplicated Side effects of treatment? @ -No Exacerbation, Progression, or Severe Exacerbation? @ -No Poses a threat to life or bodily function? How? (Chest pain, [place], [place], pneumonia, PE, COPD, DKA, ARF, appy, cholecystitis, CVA, Diverticulitis, Homicidal, Suicidal, threat to staff... and all critical care pts) @ -No Disposition Clinical Impression: Right Achilles tendinitis, Right ankle pain Disposition: HOME SELF-CARE Condition: Stable Instructions (If sedation given, give patient instructions): Achilles Tendinitis (ED) Additional Instructions: Please take the pain medications as needed in substitution for your regular Tylenol. Continue taking your meloxicam. Follow-up with the orthopedic office and return for any new or worsening symptoms Prescriptions: Acetaminophen-Codeine 300-30mg [Tylenol w/codeine #3] 1 tab PO Q4H PRN 3 Days #18 tablet PRN Reason: Pain Is patient prescribed a controlled substance at d/c from ED?: Yes When asked, does pt state using other controlled substances?: No If prescribed controlled substance>3 days was MAPS reviewed?: Prescribed <3 Days If opioid is for acute pain is fill amount 7 days or less?: Yes Referrals: Bonita Stanford [Primary Care Provider] - 1-2 days Shade Robertson MD [Medical Doctor] - 1-2 days Time of Disposition: 23:00
[2024-06-14] MEDS: ACET/COD 300 MG/30 MG STARTER PACK 6 TAB BTL PO STA (23:18)
[2024-06-14 23:23] VITALS: BP 145/90; TEMP 98.1
== END 2024-06-14 23:21 | disposition home or self-care (01) ==
LOC: EC 20:26
DX: M76.61 Achilles tendinitis, right leg (principal); Z87.442 Personal history of urinary calculi; Z91.013 Allergy to seafood
CPT/HCPCS: 99283

== ENCOUNTER → 2024-06-28 | Outpatient (CLI) | payer OTHER | END | disposition home or self-care (01) | LOC: LABWHC1 09:18 | PROVIDERS: ATTEND Internal Medicine Rheumatology | DX: M06.09 Rheumatoid arthritis without rheumatoid factor, multiple sites (principal) | CPT/HCPCS: 36415; 80076; 85025 ==

== ENCOUNTER → 2025-06-13 | Outpatient (CLI) | payer OTHER ==
[2025-06-13 15:33] LABS: Cholesterol 175.00 mg/dL (0.00-200.00); HDL Cholesterol 50.90 mg/dL (40.00-60.00); LDL Cholesterol,Calculated 97.5 mg/dL (0.0-131.0); Total Protein 7.1 g/dL (6.2-8.2); Triglycerides 133.00 mg/dL (0.00-149.00); VLDL Calculation 26.60 mg/dL (5.00-40.00)
[2025-06-13 15:34] LABS: ALT 45 U/L (10-49); AST 25 U/L (14-35); Albumin 4.5 g/dL (3.8-4.9); Albumin/Globulin Ratio 1.73 Ratio (1.60-3.17); Alkaline Phosphatase 65 U/L (41-126); Bilirubin,Unconjugated 0.27 mg/dL (0.20-1.00); Globulin 2.6 g/dL (1.6-3.3)
[2025-06-13 15:38] LABS: Basophils # (A) 0.06 X 10*3/uL (0.00-0.10); Basophils % (A) 0.6 %; Eosinophils # (A) 0.12 X 10*3/uL (0.04-0.35); Eosinophils % (A) 1.1 %; HCT 48.2 % (39.6-50.0); HGB 16.1 g/dL (13.0-17.0); Immature Grans, Automated 0.60 %; Lymphocytes # (A) 3.13 X 10*3/uL (0.90-5.00); Lymphocytes % (A) 29.1 %; MCH 30.5 pg (27.0-32.0); MCHC 33.4 g/dL (32.0-37.0); MCV 91.3 FL (80.0-97.0); Monocytes # (A) 0.66 X 10*3/uL (0.20-1.00); Monocytes % (A) 6.1 %; NRBC Per 100 WBC 0 X 10*3/uL (0.00-0.01); Neutrophils # (A) 6.72 X 10*3/uL (1.80-7.70); Neutrophils % (A) 62.5 %; Platelet Count 316 X 10*3/uL (140-440); RBC 5.28 X 10*6/uL (4.40-5.60); RDW 12.8 % (11.5-14.5); WBC 10.75 X 10*3/uL (4.50-10.00)
== END | disposition home or self-care (01) ==
LOC: LABWHC1 08:43
PROVIDERS: ATTEND Internal Medicine Rheumatology
DX: M06.09 Rheumatoid arthritis without rheumatoid factor, multiple sites (principal)
CPT/HCPCS: 36415; 80061; 80076; 85025